=== PATIENT | female | born 1955 | race Caucasian/White ===

== ENCOUNTER 2016-07-23 21:01 | Emergency (ER) | payer OTHER ==
[~2016-07-23] VITALS: Ht 170.2 cm; Wt 72.6 kg
--- NOTE | 2016-07-23 21:10 | NUR ---
TO BED 3 A 61 YO FEMALE BIBSELF C/O NOSE INJURY/ RIGHT KNEE INJURY S/P FALL @2019, NO KO. AAOX4, AMBULATORY WITH STEADY GAIT. VSS. GOWNED. INITIATED COMFORT MEASURES. AWAITING FOR ER MD VALLE.
--- NOTE | 2016-07-23 21:21 | NUR ---
SORIN GUDINO AT BEDSIDE.
[2016-07-23] MEDS ORDERED: TDAP [DIPH/PERTUSSIS/TET] 0.5 ML VIAL IM ONE ×2 (21:22→21:30)
--- NOTE | 2016-07-23 21:30 | NUR ---
WOUND CARE DONE. CLEAN DRESSING PLACED.
--- NOTE | 2016-07-23 21:44 | NUR ---
Patient discharged to home in stable condition. Written and verbal after care instructions given. Patient verbalizes understanding of instruction. Patient is ambulatory with steady gait, accompanied by family. No further complaints.
[2016-07-23 21:45] VITALS: BP 119/78
== END 2016-07-23 21:45 | disposition home or self-care (01) ==
LOC: ER 21:01
DX: S00.511A Abrasion of lip, initial encounter (principal); W01.198A Fall on same level from slipping, tripping and stumbling with subsequent striking against other object, initial encounter; Y93.01 Activity, walking, marching and hiking; Y92.89 Other specified places as the place of occurrence of the external cause; Y99.9 Unspecified external cause status
CPT/HCPCS: 90715; A4606; A6402; Z7610